=== PATIENT | male | born 1955 | race Two or more races ===

== ENCOUNTER 2017-01-13 | Emergency (ER) | payer SELFPAY ==
[~2017-01-13] VITALS: Ht 185.4 cm; Wt 90.7 kg
[~2017-01-13] MED LIST: ASPI-495 PO; [UNRECOGNIZED DRUG - REMARK]
--- NOTE | 2017-01-13 00:05 | NUR ---
TO BED 2 A 61 YO MALE BB RA39 FROM HOME. "TIGHTNESS IN THROAT AFTER EATING BON-BONS."PT REPORTS TAKING UNKNOWN ABX FOR THROAT INFECTION. UPON ARRIVAL TO ER, PATIENT IS AAOX4, AMBULATORY WITH STEADY GAIT, VSS, NAD NOTED, NONDIAPHORETIC. GOWNED. AWAITING FOR ER MD [place].
[2017-01-13] MEDS ORDERED: FAMOTIDINE (20 MG) 20 MG TABLET ONE (02:27)
[2017-01-13] MEDS ORDERED: FAMOTIDINE (20 MG) 20 MG TABLET PO ONE (02:30)
--- NOTE | 2017-01-13 02:30 | NUR ---
MEDICATED PATIENT ORDERED.
--- NOTE | 2017-01-13 02:56 | NUR ---
Patient discharged to home in stable condition. Written and verbal after care instructions given. Patient verbalizes understanding of instruction. Patient is ambulatory with steady gait, accompanied by . No further complaints.
[2017-01-13 02:57] VITALS: BP 139/76
== END 2017-01-13 02:58 | disposition home or self-care (01) ==
LOC: ER 00:02
DX: T78.1XXA Other adverse food reactions, not elsewhere classified, initial encounter (principal); Y92.89 Other specified places as the place of occurrence of the external cause; E11.9 Type 2 diabetes mellitus without complications; Z79.82 Long term (current) use of aspirin
CPT/HCPCS: 99284; A4606; Z7610